=== PATIENT | female | born 1990 | race Two or more races ===

== ENCOUNTER 2025-08-10 20:58 | Inpatient (IN) | payer BC, SELFPAY ==
[2025-08-10 14:22] VITALS: BP 136/83
[2025-08-10 14:45] LABS: Hematocrit 41.5 % (37.0-47.0); Hemoglobin 13.2 g/dL (12.0-16.0); Mean Corp Hgb Conc. 31.8 g/dL (33.0-37.0); Mean Corpuscular Volume 89.1 fL (81.0-99.0); Nucleated Red Blood Cells % 0 %; Platelet Count 283 10^3/uL (130-400); Red Cell Dist. Width 12.0 % (11.5-14.5)
[2025-08-10 14:54] LABS: INR 0.84; PT 12.0 Sec (11.4-14.6)
[2025-08-10 14:55] LABS: APTT 26.2 Sec (23.4-35.0)
[2025-08-10 15:05] LABS: HCG, Serum Qualitative Screen Negative
[2025-08-10 15:09] LABS: ALT (SGPT) 19 U/L (0-35); AST (SGOT) 21 U/L (14-36); Albumin 4.5 g/dl (3.5-5.0); Alkaline Phosphatase 60 U/L (38-126); Blood Urea Nitrogen 4 mg/dl (7-17); Calcium 9.8 mg/dl (8.4-10.2); Carbon Dioxide 25 mmol/L (22-30); Chloride 102 mmol/L (98-107); Glucose 99 mg/dl (70-99); Potassium 3.9 mmol/L (3.5-5.1); Sodium 132 mmol/L (135-145); Total Protein 7.6 g/dl (6.3-8.2); eGFR > 60.00
[2025-08-10 16:08] VITALS: BMI 29.1
[2025-08-10 16:12] VITALS: BP 110/88
--- NOTE | 2025-08-10 17:18 | ED.GENMED ---
History of Present Illness
<Diallo Brice MD, Resident - Last Filed: 08/10/25 21:32>
General
Chief Complaint: Rectal Bleeding
Source: patient and significant other
Time Seen by Provider: 08/10/25 16:56
History of Present Illness
History of Present Illness:
Patient is a 35-year-old female with PMH of papillary thyroid cancer s/p CASTRO ablation and thyroidectomy, hypothyroidism, and GERD who presents to the [facility] ED with bloody diarrhea and abdominal pain since this morning. Patient was woken from
sleep at 3 AM this morning with severe, diffuse abdominal pain. She then had diarrheal BM, which eased the pain. Since 3 AM, patient has had constant abdominal pain that fluctuates in intensity. The pain gradually increases until she has BM,
which eases (but does not totally relieve) the pain. Patient's diarrheal BMs became bloody around 8 AM, with all subsequent BMs being bloody diarrhea. Since onset 3 AM, patient has had 'at least a dozen' BMs of diarrhea. Patient has been short of
breath since onset this morning, but she believes this is due to the deep breathing worsening the abdominal pain. No chest pain, cough, wheezing, or recent illnesses. No recent changes to her diet. Patient had a normal dinner of rice and
chickpeas at home last night, and she had some rice crispies around 11 AM today. Patient was started on antibiotic (amoxicillin) by urgent care on 08/05/2025 for suspected dental infection following dental work 2-3 weeks ago. She is scheduled to
see her dentist tomorrow. Patient traveled to [place] for work. Couple weeks ago. No personal or family history of GI cancer or inflammatory bowel disease. Never had a colonoscopy. No history of abdominal surgeries.
Past History
<Diallo Brice MD, Resident - Last Filed: 08/10/25 21:32>
Past History
ED Past Medical History: Cancer (Papillary thyroid cancer (diagnosed September 2024)), GERD and Hypothyroidism
ED Past Surgical History: Other (Thyroidectomy (October 2024); CASTRO ablation (March 2025))
Family History
Family History: Negative Cancer
Review of Systems
<Diallo Brice MD, Resident - Last Filed: 08/10/25 21:32>
Review of Systems
Respiratory: Reports trouble breathing; Denies cough
Cardiac: Denies chest pain
ABD/GI: Reports abdominal pain, diarrhea and bloody stools; Denies nausea or vomiting
Neurological: Denies dizzy or headache
Phy Exam
<Diallo Brice MD, Resident - Last Filed: 08/10/25 21:32>
Physical Exam
Physical Exam:
General: Mild distress due to abdominal pain. Easily communicative.
GI: Diffusely TTP. Soft. Nondistended. No rigidity, guarding, or rebound tenderness. Rectal exam shows no hemorrhoids, fissures, or [place] blood. No masses. No ecchymoses or lesions.
CV: RRR. S1, S2 noted. No M/R/G. No LE edema.
Pulm: CTAB. No wheeze or crackles. No cyanosis.
Neuro: A&O x 3. NFD. CN II through XII grossly intact.
Course
<Diallo Brice MD, Resident - Last Filed: 08/10/25 21:32>
Orders/Labs/Results
Orders:
Orders
08/10/25 14:27
EKG [Electrocardiogram (*1)] Urgent
Reason for Study: Tachycardia
EKG- Treatment ONCE
Test Result ONCE
08/10/25 14:31
Type+Screen Urgent
Complete Blood Count/With Diff Urgent
Comprehensive Metabolic Panel Urgent
HCG, Serum Qualitative Screen Urgent
Comment: Notify provider if positive test present
PTT Urgent
Prothrombin Time Urgent
08/10/25 17:31
0.9% Sodium Chloride 1000 ml [Nss] 1,000 ml IV BOLUS
HYDROmorphone [Dilaudid] 0.5 mg IV NOW STA
08/10/25 17:33
CT Abd/pelvis W Iv Cont Urgent
Comment:
Reason For Exam: Abdominal pain w/ bloody diarrhea
08/10/25 18:38
STOOL [C difficile Antigen & Toxins] Urgent
ABDULKADIR Source: Feces/Stool
Specimen Description:
Date Specimen was Collected: 08/10/25
Time Specimen was Collected: 17:36
Stool Culture Urgent
ABDULKADIR Source: Feces/Stool
Specimen Description:
Date Specimen was Collected: 08/10/25
Time Specimen was Collected: 17:36
08/10/25 20:18
Admit/Transfer Patient As Directed
Co-Sign Provider:
Level of Care: Inpatient admission
Assign to:: Medical/Surgical
Physician / Group: christi
Diagnosis: colitis
Reason for Hospitalization: colitis
Expected length of stay greater than two midnights?: Yes
ELOS- Estimated Length of Stay in days: 3
I certify the patient meets the requirements for IP care: Yes
08/10/25 20:19
Code Status As Directed
Resuscitation Status: Full Code
PRN Pain Medication Management As Directed
May give lesser potent ordered pain med per pt: Yes
preference::
Protocol:: Medication orders for pain may be administered in a
manner that supports deferring to patient preference
when the pt is:
- Requesting an ordered lesser potent pain medication.
Least to most potent pain medications are defined
as: acetaminophen < NSAID < tramadol < opioids
(morphine, oxycodone, hydromorphone).
- Requesting a lesser dose of the same medication IF
ORDERED.
- Requesting a less intrusive route of administration
if both routes are prescribed by the provider (PO <
IV).
08/10/25 20:23
Vancomycin HCl [Firvanq] 250 mg PO NOW STA
08/10/25 20:27
Ondansetron Injectable [Zofran] 4 mg IV NOW STA
08/10/25 20:53
Hemoglobin Routine
Abnormal Lab Results
08/10/25 08/10/25
14:31 20:53
Hgb 11.9 L g/dL
(12.0-16.0)
MCHC 31.8 L g/dL
(33.0-37.0)
Absolute Neuts (auto) 8.2 H 10^3/uL
(1.4-6.5)
Neutrophils % 82.6 H %
(42.2-75.2)
Lymphocytes % 12.0 L %
(20.5-51.1)
Sodium 132 L mmol/L
(135-145)
BUN 4 L mg/dl
(7-17)
08/10/25 20:53
08/10/25 14:31
Vital Signs
Initial and Last Documented VS:
Initial Vital Signs
Temp Pulse Resp BP Pulse Ox
98.6 F 99 20 136/83 96
08/10/25 14:22 08/10/25 14:22 08/10/25 14:22 08/10/25 14:22 08/10/25 14:22
Last Documented Vital Signs
Temp Pulse Resp BP Pulse Ox
98.6 F 67 18 109/84 99
08/10/25 14:22 08/10/25 20:56 08/10/25 20:56 08/10/25 20:56 08/10/25 20:56
Valeriolt;Martín Jay, - Last Filed: 08/10/25 19:58>
Orders/Labs/Results
Orders:
Orders
08/10/25 14:27
EKG [Electrocardiogram (*1)] Urgent
Reason for Study: Tachycardia
EKG- Treatment ONCE
Test Result ONCE
08/10/25 14:31
Type+Screen Urgent
Complete Blood Count/With Diff Urgent
Comprehensive Metabolic Panel Urgent
HCG, Serum Qualitative Screen Urgent
Comment: Notify provider if positive test present
PTT Urgent
Prothrombin Time Urgent
08/10/25 17:31
0.9% Sodium Chloride 1000 ml [Nss] 1,000 ml IV BOLUS
HYDROmorphone [Dilaudid] 0.5 mg IV NOW STA
08/10/25 17:33
CT Abd/pelvis W Iv Cont Urgent
Comment:
Reason For Exam: Abdominal pain w/ bloody diarrhea
08/10/25 18:38
STOOL [C difficile Antigen & Toxins] Urgent
ABDULKADIR Source: Feces/Stool
Specimen Description:
Date Specimen was Collected: 08/10/25
Time Specimen was Collected: 17:36
Stool Culture Urgent
ABDULKADIR Source: Feces/Stool
Specimen Description:
Date Specimen was Collected: 08/10/25
Time Specimen was Collected: 17:36
08/10/25 20:18
Admit/Transfer Patient As Directed
Co-Sign Provider:
Level of Care: Inpatient admission
Assign to:: Medical/Surgical
Physician / Group: christi
Diagnosis: colitis
Reason for Hospitalization: colitis
Expected length of stay greater than two midnights?: Yes
ELOS- Estimated Length of Stay in days: 3
I certify the patient meets the requirements for IP care: Yes
08/10/25 20:19
Code Status As Directed
Resuscitation Status: Full Code
PRN Pain Medication Management As Directed
May give lesser potent ordered pain med per pt: Yes
preference::
Protocol:: Medication orders for pain may be administered in a
manner that supports deferring to patient preference
when the pt is:
- Requesting an ordered lesser potent pain medication.
Least to most potent pain medications are defined
as: acetaminophen < NSAID < tramadol < opioids
(morphine, oxycodone, hydromorphone).
- Requesting a lesser dose of the same medication IF
ORDERED.
- Requesting a less intrusive route of administration
if both routes are prescribed by the provider (PO <
IV).
08/10/25 20:23
Vancomycin HCl [Firvanq] 250 mg PO NOW STA
08/10/25 20:27
Ondansetron Injectable [Zofran] 4 mg IV NOW STA
08/10/25 20:53
Hemoglobin Routine
Abnormal Lab Results
08/10/25 08/10/25
14:31 20:53
Hgb 11.9 L g/dL
(12.0-16.0)
MCHC 31.8 L g/dL
(33.0-37.0)
Absolute Neuts (auto) 8.2 H 10^3/uL
(1.4-6.5)
Neutrophils % 82.6 H %
(42.2-75.2)
Lymphocytes % 12.0 L %
(20.5-51.1)
Sodium 132 L mmol/L
(135-145)
BUN 4 L mg/dl
(7-17)
08/10/25 20:53
08/10/25 14:31
Vital Signs
Initial and Last Documented VS:
Initial Vital Signs
Temp Pulse Resp BP Pulse Ox
98.6 F 99 20 136/83 96
08/10/25 14:22 08/10/25 14:22 08/10/25 14:22 08/10/25 14:22 08/10/25 14:22
Last Documented Vital Signs
Temp Pulse Resp BP Pulse Ox
98.6 F 67 18 109/84 99
08/10/25 14:22 08/10/25 20:56 08/10/25 20:56 08/10/25 20:56 08/10/25 20:56
<Diallo Brice MD, Resident - Last Filed: 08/10/25 21:32>
MDM/Problems Addressed
Differential Diagnosis Includes:
Infectious colitis (e.g., C. difficile, Shigella, STEC)
Inflammatory bowel disease
Ischemic colitis
Malignancy
MDM/Problems Addressed:
Assessment: Patient is a 35-year-old female with PMH of papillary thyroid cancer s/p CASTRO ablation and thyroidectomy, hypothyroidism, and GERD who presents with sudden onset, severe, diffuse abdominal pain and frequent diarrheal bowel movements since
3 AM, with the bowel movements producing bright red blood since 8 AM. BMs provide mild relief of abdominal pain. Mild shortness of breath due to abdominal pain. Recently started amoxicillin on 08/05 for dental infection. No recent illnesses, sick
contacts, international travel, or changes to her diet. Abdominal exam remarkable for diffuse TTP, without peritoneal signs. Rectal exam shows no hemorrhoids, fissures, or [place] blood. AFVSS. EKG shows NSR. Hgb 13.5. No leukocytosis. C.
difficile antigen positive, toxin negative. CTAP suggests diffuse colitis. Suspect C. difficile colitis.
Plan:
#Abdominal pain
#Bloody diarrhea
EKG
Labs: CBC, CMP, stool culture, C. difficile studies
Imaging: CTAP w/ IV contrast
IVFs, pain control
Antibiotics: Vancomycin
Plan for admission
<Diallo Brice MD, Resident - Last Filed: 08/10/25 21:32>
*Pulse Oximetry
SaO2: 99
Oxygen Mode of Delivery: Room air
Patient hypoxic: no
*Critical Care Note
Total Time (30-74mins, 75-104mins- exclusive of procedures): Not Applicable
<Martín Jay DO - Last Filed: 08/10/25 19:58>
Update Note
Update Note:
7:[address] noted labs noted stool studies noted patient is fairly uncomfortable believe will be prudent admitted to the hospital start her on antibiotics for C. difficile
ED Attending Note
<Diallo Brice MD, Resident - Last Filed: 08/10/25 21:32>
-
Portions of this chart may have been created with voice recognition software.� Occasional wrong word or��sound alike� substitutions may have occurred due to the inherent limitations of voice recognition software.
<Martín Jay, DO - Last Filed: 08/10/25 19:58>
ED Attending Note
Patient seen and examined by attending physician: Yes
I performed a history and physical exam of patient and discussed management with resident, I reviewed resident's note and agree with documented findings and plan of care.: Yes
ED Attending Note:
Seen with resident examined independently 35-year-old female thyroid cancer status post removal on replacement therapy crampy abdominal pain with blood, been on amoxicillin for dental issue will check stool studies CT scan analgesics
Discharge Plan
Departure
Patient Disposition: Admit
Date of Disposition: 08/10/25
Time of Disposition: 19:59
Presentation/result/management discussed w/ accepting MD/DO: Hospitalist
Patient with high blood pressure during this ER visit?: No
Condition: Fair
Covid-19: Not Applicable
Discharge Problem:
Colitis
Interventions
Interventions:
*Risk Screen - Suicide Last Done: 08/10/25 14:22
*General Assessment Last Done: 08/10/25 16:09
*Neglect/Abuse Screening Last Done: 08/10/25 14:22
*ED- Fall Risk Assessment Last Done: 08/10/25 16:09
*ED COVID-19 Vaccine History Last Done: 08/10/25 16:09
*ED Influenza Vaccine History Last Done: 08/10/25 16:09
BF-Nkjyeh-Cdnocsswwp Assessment Last Done: 08/10/25 16:14
ED- Cardiac Assessment Last Done: 08/10/25 16:14
ED- Pulmonary Assessment Last Done: 08/10/25 16:14
[2025-08-10] MEDS: NSS 1000 IV (17:49)
[2025-08-10] MEDS: DILAUDID 0.5 MG IV (18:33)
--- NOTE | 2025-08-10 20:02 | HPS.HSE ---
Family Physician
-
Family Physician: Jessica Morales MD
Chief Complaint
-
abdominal pain
History of Present Illness
35-year-old female with PMH of papillary thyroid cancer s/p CASTRO ablation and thyroidectomy, hypothyroidism, and GERD who presents to the [facility] ED with bloody diarrhea and abdominal pain since this morning. patient stated multiple episodes of
watery bloody diarrhea. she is also having vomiting as well. she is complaining of abdominal pain.patient had a normal dinner of rice and chickpeas at home last night, and she had some rice crispies around 11 AM today. Patient was started on
antibiotic (amoxicillin) by urgent care on 08/05/2025 for suspected dental infection following dental work 2-3 weeks ago. She is scheduled to see her dentist tomorrow. Patient traveled to [place] for work last week for 3 days. denied fever,
chills, chest pain, sob. denied cough, congestion. denied dysuria or hematuria.
CT with colitis. admitting for further management.
Medical History
Past Medical History
Past Medical History: Reports Other
Additional Past Medical History:
papillary thyroid cancer
hypothyroidism
GERD
Past Surgical History: Reports Other
Additional Past Surgical History:
thyroidectomy
Social History
Tobacco: Non-smoker
Alcohol: None
Drug: None
Personal:
Living: With Family
Family History
Family History: Not pertinent
Allergies / Home Medications
Allergies reflects when Allergies were last updated in [facility].
Home Medications with original date entered in [facility]
Allergy/Medication List:
Allergies
Allergy/AdvReac Type Severity Reaction Status Date / Time
No Known Allergies Allergy Unverified 08/10/25 14:22
Home Medications
levothyroxine 100 mcg tablet 100 mcg PO DAILY 08/10/25
omeprazole 20 mg tablet,delayed release 20 mg PO DAILY PRN reflux 08/10/25
Review of Systems
-
Constitutional: Reports No Symptoms
EENT: Reports No Symptoms
Respiratory: Reports No Symptoms
Cardiac: Reports No Symptoms
Abdomen/GI: Reports Abdominal Pain, Nausea, Vomiting and Diarrhea
: Reports No Symptoms
Musculoskeletal: Reports No Symptoms
Skin: Reports No Symptoms
Neurological: Reports No Symptoms
Endocrine: Reports No Symptoms
Hematologic/Lymphatic: Reports No Symptoms
Psych: Reports No Symptoms
Physical Exam
Vital Signs
Vital Signs
Temp Pulse Resp BP Pulse Ox
98.6 F 78 17 110/88 99
08/10/25 14:22 08/10/25 16:14 08/10/25 19:53 08/10/25 16:12 08/10/25 17:27
Physical Exam
General: Well Developed, Well Nourished and No Apparent Distress
HEENT: NormoCephalic, Moist mucous membranes and Atraumatic
Respiratory: Clear
Cardiac: S1/S2 and Regular Rhythm; No Murmur or Rub
GI: Soft, Non Tender, Non Distended and Normal Bowel Sounds; No Organomegaly
Rectal: Deferred by Provider
Musculoskeletal: No Clubbing, No Cyanosis and No Edema
Skin: No Rash
Neuro: AO x 3 and Nonfocal/grossly intact
Psych: Calm
Laboratory Results
-
08/10/25 14:31
08/10/25 14:31
Laboratory Results
PT 12.0 Sec (11.4-14.6) 08/10/25 14:31
INR 0.84 08/10/25 14:31
APTT 26.2 Sec (23.4-35.0) 08/10/25 14:31
Total Bilirubin 0.9 mg/dl (0.2-1.3) 08/10/25 14:31
AST 21 U/L (14-36) 08/10/25 14:31
ALT 19 U/L (0-35) 08/10/25 14:31
Alkaline Phosphatase 60 U/L (38-126) 08/10/25 14:31
Data Reviewed
-
CT Scan: Report Reviewed by me
Lab Data: Labs Reviewed by me
Impression/Plan
-
# Abdominal pain with bloody stools secondary to c diff colitis secondary to recent abx.
- CT abdomen pelvis with impression ofCT findings compatible with diffuse colitis. Infectious colitis including C. difficile antibiotic associated colitis would be the leading consideration. Main differential consideration of inflammatory bowel
disease such as ulcerative colitis.The appendix appears normal.Small amount of free pelvic fluid.
- Obtain stool cultures
-stool for C diff antigen positive, toxin negative
- Keep patient n.p.o. wit sips of clear
- Fluids continued for hydration
-oral vanco
-consider GI consult if no improvement in her symptoms
-Zofran and Dilaudid prn
#hxt of papillary thyroid ca s/p thyroidectomy
#post hypothyroidism
-levothyroxine continued
#DVT prophylaxis
-scd
#CODE status
-full code
--- NOTE | 2025-08-10 20:41 | W.PN.UPDATE ---
Update Note
Progress Note Update
This is an addendum to H&P written by SANDWICH MACHINE OPERATOR Marisela Camargo
I saw and examined the patient.
The SANDWICH MACHINE OPERATOR's note was reviewed and I agree with the note.
Comment:
Ms. Amara Morales is a 35 yo woman with hx recent antibiotic use for dental infection presents with abdominal pain, bloody diarrhea, nausea and vomiting that started this morning. Patient was on antibiotics one month ago and again started on Friday
for dental infection.
Triage VS: T 98.6, P 99, RR 20, BP 136/83, SpO2 96%
On exam patient appears mildly uncomfortable. Lungs clear; abdomen tender in all 4 quadrants, no rebound or guarding
LABS: WBC 9.9, Hg 13.2, PLT 283, Na 132, K+ 3.9, CO2 25, BUN 4, Cr 0.6, liver enzymes WNL
HCG negative
CT A/P
IMPRESSION: CT findings compatible with diffuse colitis. Infectious colitis including C. difficile antibiotic associated colitis would be the leading consideration. Main differential consideration of inflammatory bowel disease such as ulcerative
colitis.
The appendix appears normal.
Small amount of free pelvic fluid.
C. Diff Colitis
Hematochezia
-C. Diff antigen positive, toxin negative. Although toxin negative, suspect true infection based on clinical picture.
-Will continue oral Vancomycin 125mg PO QID
-IVF
-pain control, IV Zofran PRN
-trend Hg
-if no improvement in 48-72 hours, low threshold to consult GI
Dental infection
-s/p 4 days Amoxicillin, hold further antibiotics for now
DVT PPx SCD
FULL CODE
76 minutes spent on patient care
[2025-08-10] MEDS: FIRVANQ 250 MG PO (20:54)
[2025-08-10] MEDS: ZOFRAN 4 MG IV (20:54)
[2025-08-10 20:56] VITALS: BP 109/84
[2025-08-10 21:05] LABS: Hemoglobin 11.9 g/dL (12.0-16.0)
--- NOTE | 2025-08-10 23:44 | PTCARENOTE ---
Pt received from ED to room 420. Pt oriented to room and call poon.
[2025-08-10 23:53] VITALS: BP 111/75; BMI 24.1
[2025-08-11] MEDS: NSS 1000 IV ×2 (00:07→11:34)
[2025-08-11] MEDS: DILAUDID 0.5 MG IV ×4 (02:50→20:46)
[2025-08-11] MEDS: FIRVANQ 125 MG PO ×2 (03:00→06:05)
[2025-08-11] MEDS: SYNTHROID 100 MCG PO (06:05)
[2025-08-11 08:10] VITALS: BP 105/70
[2025-08-11 08:21] LABS: Blood Urea Nitrogen 3 mg/dl (7-17); Calcium 8.4 mg/dl (8.4-10.2); Carbon Dioxide 26 mmol/L (22-30); Chloride 105 mmol/L (98-107); Estimated Creatinine Clearance 120 ml/min; Glucose 95 mg/dl (70-99); Potassium 3.6 mmol/L (3.5-5.1); Sodium 133 mmol/L (135-145); eGFR > 60.00
[2025-08-11 08:34] LABS: Hematocrit 38.8 % (37.0-47.0); Hemoglobin 12.5 g/dL (12.0-16.0); Mean Corp Hgb Conc. 32.2 g/dL (33.0-37.0); Mean Corpuscular Volume 91.1 fL (81.0-99.0); Platelet Count 258 10^3/uL (130-400); Red Cell Dist. Width 12.1 % (11.5-14.5)
--- NOTE | 2025-08-11 10:56 | W.PN.HOSP.TC ---
Today's Communication/Plan
-
And IV Flagyl. Increase p.o. vancomycin dose.
Assessment / Plan
Assessment / Plan
Acute bloody diarrhea with pancolitis
Healthy patient. Not immune compromised. No recent unusual food.
Antibiotics developed on antibiotics use.
C. difficile antigen positive but toxin is negative but clinically with pancolitis, bloody diarrhea, antibiotics used it is all more suggestive of C. difficile colitis but other infectious etiologies could be possible. No chronicity to her GI
symptoms doubt acute inflammatory bowel disease.
Due to severity of her pain and pancolitis and bloody diarrhea increase the vancomycin to 250mg and had Flagyl. If no improvement in 24-48 hours hours will need a GI evaluation.
Keep her n.p.o. today. Continue with IV fluids and IV Zofran.
Dental infection-finished 4 days of amoxicillin. Hold further antibiotics for now.
Anticipated Discharge: > 48 hours
Subjective/Interval History
-
Date of Service: August 11, 2025
Patient still with abdominal pain and bloody diarrhea. Nausea present but no emesis. No fever or chills. No lightheadedness.
Patient had 3 courses of antibiotics this year-once in November after thyroid surgery, once in June for dental indication, again now for dental issues. No prior diarrheal episodes with antibiotics.
Denies any GI illness in the family.
Did not eat anything unusual home-cooked meals.
Travelled to [facility] last week but no GI illness.
Objective Data
-
Labs:
Laboratory Results
08/11/25
06:56
WBC 10.6
Hgb 12.5
Hct 38.8
Plt Count 258
Sodium 133 L
Potassium 3.6
Chloride 105
Carbon Dioxide 26
BUN 3 L
Creatinine 0.6
Glucose 95
Calcium 8.4
Vital Signs:
Vital Signs
Temp Pulse Resp BP Pulse Ox
98.2 F 77 16 105/70 95
08/11/25 08:10 08/11/25 08:10 08/11/25 08:10 08/11/25 08:10 08/11/25 08:10
I&O
08/10/25 08/11/25 08/12/25
06:59 06:59 06:59
Intake Total 560 / 560
Balance 560 / 560
Physical Exam
-
General: Comfortable
Respiratory: Clear to Auscultation and Non Labored Respirations; Negative Accessory Resp Muscle Use
Cardiac: Regular Rhythm and S1/S2; Negative Tachycardic
GI: Soft, Nondistended, Normal Bowel Sounds and Tender (Soft with generalized discomfort in all quadrants but no rebound guarding rigidity)
Neuro: AO x 3
Data Reviewed
-
CT Scan: Report Reviewed by me (CT abdomen pelvis)
Labs: Labs Reviewed by me
[2025-08-11] MEDS: FIRVANQ 250 MG PO ×2 (11:34→18:09)
[2025-08-11] MEDS: FLAGYL 500 MG 100 IV ×2 (11:34→19:39)
[2025-08-11 15:22] VITALS: BP 109/69
--- NOTE | 2025-08-11 16:55 | CM ---
ASHLEY met with Sharda and her . They live in a 2 story home with 2 entry steps. Bedroom is on the second level; full bathrooms on both levels.
Sharda is typically (I) amb and adls. Anticipates discharge to home with no needs.
[2025-08-11 23:00] VITALS: BP 105/69
[2025-08-12] MEDS: NSS 1000 IV ×2 (00:48→12:19)
[2025-08-12] MEDS: FIRVANQ 250 MG PO ×4 (00:50→17:26)
[2025-08-12] MEDS: FLAGYL 500 MG 100 IV ×3 (03:49→20:39)
[2025-08-12] MEDS: SYNTHROID 100 MCG PO (05:31)
[2025-08-12 07:14] LABS: Hematocrit 34.8 % (37.0-47.0); Hemoglobin 11.1 g/dL (12.0-16.0); Mean Corp Hgb Conc. 31.9 g/dL (33.0-37.0); Mean Corpuscular Volume 91.3 fL (81.0-99.0); Platelet Count 196 10^3/uL (130-400); Red Cell Dist. Width 12.1 % (11.5-14.5)
[2025-08-12 07:16] LABS: Blood Urea Nitrogen < 2 mg/dl (7-17); Calcium 8.1 mg/dl (8.4-10.2); Carbon Dioxide 28 mmol/L (22-30); Chloride 104 mmol/L (98-107); Estimated Creatinine Clearance 120 ml/min; Glucose 82 mg/dl (70-99); Potassium 3.3 mmol/L (3.5-5.1); Sodium 132 mmol/L (135-145); eGFR > 60.00
[2025-08-12 08:31] VITALS: BP 110/71
--- NOTE | 2025-08-12 09:05 | PN.CDI ---
CDI
- -
CDI:
Physician Documentation Request
Admit Date: 08/10/25 20:58
Dear Doctor Isaiah,
Please review the following and provide your response in the progress notes.
Clinical Indicators:
Pt admitted with Acute bloody diarrhea with pancolitis
Sodium levels are as below/Pt did get IVFs
Laboratory Tests
08/10/25 08/11/25 08/12/25
14:31 06:56 05:47
Sodium 132 L 133 L 132 L
Based on the above, could you clarify in the progress notes, the appropriate diagnosis, if significant, that supports the above abnormalities and additional evaluation, monitoring and/or treatment rendered:
Hyponatremia
Abnormal lab value
Other ( please specify)
Use of terms such as suspected, likely, concern for, or probable (associated with a specific diagnosis that is being evaluated, monitored, or treated as if it exists) are acceptable and can be coded in the inpatient setting, when documented at the
time of discharge.
Thank you,
Bella Fox RN
CDI Specialist
[place] [facility]
Please use your independent medical judgment in providing your response.
[2025-08-12] MEDS: KCL 40 MEQ PO (12:19)
--- NOTE | 2025-08-12 12:41 | W.PN.HOSP.TC ---
Today's Communication/Plan
-
Start on clear liquids
Continue with oral vancomycin and IV Flagyl
Assessment / Plan
Assessment / Plan
Acute bloody diarrhea with pancolitis
Healthy patient. Not immune compromised. No recent unusual food.
Antibiotics developed on antibiotics use.
C. difficile antigen positive but toxin is negative but clinically with pancolitis, bloody diarrhea, antibiotics used it is all more suggestive of C. difficile colitis but other infectious etiologies could be possible. No chronicity to her GI
symptoms doubt acute inflammatory bowel disease.
Due to severity of her pain and pancolitis and bloody diarrhea increase the vancomycin to 250mg and had Flagyl.
Improving symptomatology. No further blood. Less frequent bowel movements.
Start on clear liquids. DC IV fluids when she tolerates clear liquids.
Hypokalemia-replete
Dental infection-finished 4 days of amoxicillin. Hold further antibiotics for now.
Anticipated Discharge: 24 - 48 hours
Subjective/Interval History
-
Date of Service: August 12, 2025
Feeling improved.
Slept for 8 hours without interruption.
This morning had small loose stools but no blood in the stools this time.
No nausea vomiting. No fever chills.
Improved abdominal discomfort.
Objective Data
-
Labs:
Laboratory Results
08/12/25
05:47
WBC 7.2
Hgb 11.1 L
Hct 34.8 L
Plt Count 196 D
Sodium 132 L
Potassium 3.3 L
Chloride 104
Carbon Dioxide 28
BUN < 2 L
Creatinine 0.5 L
Glucose 82
Calcium 8.1 L
Vital Signs:
Vital Signs
Temp Pulse Resp BP Pulse Ox
98.1 F 77 16 110/71 100
08/12/25 08:31 08/12/25 08:31 08/12/25 08:31 08/12/25 08:31 08/12/25 08:31
I&O
08/11/25 08/12/25 08/13/25
06:59 06:59 06:59
Intake Total 560 / 560 960 / 960
Balance 560 / 560 960 / 960
Physical Exam
-
General: Comfortable
Respiratory: Non Labored Respirations; Negative Accessory Resp Muscle Use
Cardiac: Regular Rhythm; Negative Tachycardic
GI: Soft, Nontender, Nondistended and Normal Bowel Sounds
Neuro: AO x 3
Psych: Calm
Data Reviewed
-
Labs: Labs Reviewed by me
--- NOTE | 2025-08-12 14:23 | CM ---
CM reviewed chart, care ongoing.
Plan start on clear liquids, continue antibiotics.
CM anticipates no needs upon d/c, will continue to follow.
Plan; home no needs anticipated
[2025-08-12 15:50] VITALS: BP 101/67
[2025-08-12 23:00] VITALS: BP 124/71
[2025-08-13] MEDS: FIRVANQ 250 MG PO ×4 (00:18→17:09)
[2025-08-13] MEDS: NSS 1000 IV (02:16)
[2025-08-13] MEDS: FLAGYL 500 MG 100 IV ×3 (04:06→20:01)
[2025-08-13] MEDS: SYNTHROID 100 MCG PO (05:13)
[2025-08-13 07:00] VITALS: BP 98/62
[2025-08-13 08:04] LABS: Hematocrit 34.7 % (37.0-47.0); Hemoglobin 11.1 g/dL (12.0-16.0); Mean Corp Hgb Conc. 32.0 g/dL (33.0-37.0); Mean Corpuscular Volume 91.3 fL (81.0-99.0); Platelet Count 199 10^3/uL (130-400); Red Cell Dist. Width 11.9 % (11.5-14.5)
[2025-08-13 08:30] LABS: Blood Urea Nitrogen 4 mg/dl (7-17); Calcium 8.3 mg/dl (8.4-10.2); Carbon Dioxide 26 mmol/L (22-30); Chloride 106 mmol/L (98-107); Estimated Creatinine Clearance 120 ml/min; Glucose 72 mg/dl (70-99); Potassium 3.8 mmol/L (3.5-5.1); Sodium 133 mmol/L (135-145); eGFR > 60.00
--- NOTE | 2025-08-13 10:19 | W.PN.HOSP.TC ---
Today's Communication/Plan
-
Advance to full liquid diets. Hold further IV fluids.
Continue with p.o. vancomycin and IV Flagyl
Assessment / Plan
Assessment / Plan
Acute bloody diarrhea with pancolitis
Healthy patient. Not immune compromised. No recent unusual food.
Antibiotics developed on antibiotics use.
C. difficile antigen positive but toxin is negative but clinically with pancolitis, bloody diarrhea, antibiotics used it is all more suggestive of C. difficile colitis but other infectious etiologies could be possible. No chronicity to her GI
symptoms doubt acute inflammatory bowel disease.
Due to severity of her pain and pancolitis and bloody diarrhea increase the vancomycin to 250mg and had Flagyl.
Continued improving symptomatology. Nonbloody diarrheal stools. Less frequent bowel movements.
Advance diet to full liquid
DC IV fluids
Hyponatremia-suspect secondary to volume deficit continue to follow
Dental infection-finished 4 days of amoxicillin. Hold further antibiotics for now.
Anticipated Discharge: 24 - 48 hours
Subjective/Interval History
-
Date of Service: August 13, 2025
Improving diarrhea. Not bloody anymore. Stools are looser.
No nausea vomiting.
Abdominal pain has improved. She feels bloated at times. No fever or chills.
Objective Data
-
Labs:
Laboratory Results
08/13/25
06:41
WBC 5.2
Hgb 11.1 L
Hct 34.7 L
Plt Count 199
Sodium 133 L
Potassium 3.8
Chloride 106
Carbon Dioxide 26
BUN 4 L
Creatinine 0.6
Glucose 72
Calcium 8.3 L
Vital Signs:
Vital Signs
Temp Pulse Resp BP Pulse Ox
98.1 F 71 12 98/62 96
08/13/25 07:00 08/13/25 07:00 08/13/25 07:00 08/13/25 07:00 08/13/25 07:00
I&O
08/12/25 08/13/25 08/14/25
06:59 06:59 06:59
Intake Total 960 / 960 2079
Balance 960 / 960 2079
Physical Exam
-
General: No Apparent Distress
Respiratory: Clear to Auscultation and Non Labored Respirations; Negative Accessory Resp Muscle Use
Cardiac: Regular Rhythm and S1/S2; Negative Tachycardic
GI: Soft, Nondistended, Normal Bowel Sounds and Tender (Some discomfort noted today in the left side of the abdomen but no rebound guarding rigidity)
Neuro: AO x 3
Psych: Calm
Data Reviewed
-
Labs: Labs Reviewed by me
[2025-08-13 15:19] VITALS: BP 105/69
[2025-08-13] MEDS: FLUSH (NSS) 1 FLUSH IV (20:01)
[2025-08-13 23:00] VITALS: BP 105/63
[2025-08-14] MEDS: FIRVANQ 250 MG PO ×5 (00:31→23:41)
[2025-08-14] MEDS: FLUSH (NSS) 2 FLUSH IV (04:34)
[2025-08-14] MEDS: FLAGYL 500 MG 100 IV ×3 (04:34→20:45)
[2025-08-14] MEDS: SYNTHROID 100 MCG PO (05:18)
[2025-08-14 07:00] VITALS: BP 104/75
[2025-08-14 07:00] LABS: Hematocrit 37.5 % (37.0-47.0); Hemoglobin 12.1 g/dL (12.0-16.0); Mean Corp Hgb Conc. 32.3 g/dL (33.0-37.0); Mean Corpuscular Volume 88.7 fL (81.0-99.0); Platelet Count 224 10^3/uL (130-400); Red Cell Dist. Width 11.9 % (11.5-14.5)
[2025-08-14 07:19] LABS: Blood Urea Nitrogen 6 mg/dl (7-17); Calcium 8.8 mg/dl (8.4-10.2); Carbon Dioxide 24 mmol/L (22-30); Chloride 102 mmol/L (98-107); Estimated Creatinine Clearance 103 ml/min; Glucose 75 mg/dl (70-99); Potassium 3.9 mmol/L (3.5-5.1); Sodium 132 mmol/L (135-145); eGFR > 60.00
--- NOTE | 2025-08-14 11:44 | W.PN.HOSP.TC ---
Today's Communication/Plan
-
Advance diet to low residue diet
Assessment / Plan
Assessment / Plan
Acute bloody diarrhea with pancolitis
Healthy patient. Not immune compromised. No recent unusual food.
Diarrhea developed on antibiotics use.
C. difficile antigen positive but toxin is negative but clinically with pancolitis, bloody diarrhea, antibiotics used it is all more suggestive of C. difficile colitis but other infectious etiologies could be possible. No chronicity to her GI
symptoms doubt acute inflammatory bowel disease.
Due to severity of her pain and pancolitis and bloody diarrhea increased the vancomycin to 250mg and had Flagyl.
Continued improving symptomatology. No further blood in the stools. Less frequent bowel movements.
Tolerating clear liquid diet. Started on low residue today.
Hyponatremia-suspect secondary to volume deficit continue to follow
Dental infection-finished 4 days of amoxicillin. Hold further antibiotics for now. Experiencing some discomfort in the left jaw. Advised to see dentist tomorrow on discharge. She was advised that she will require 10 days of antibiotics from the
last day of antibiotics if the dentist were to prefer to put her back on antibiotic.
Anticipated Discharge: Within 24 hours
Subjective/Interval History
-
Date of Service: August 14, 2025
Continued improvement. Tolerating full liquid diet. Stools are on the looser side but much improved frequency and remains nonbloody. No fever or chills.
Experiencing some discomfort in the left lower jaw where she had a crown placed.
Denies abdominal pain but feels little bloated.
Objective Data
-
Labs:
Laboratory Results
08/14/25
06:12
WBC 5.7
Hgb 12.1
Hct 37.5
Plt Count 224
Sodium 132 L
Potassium 3.9
Chloride 102
Carbon Dioxide 24
BUN 6 L
Creatinine 0.7
Glucose 75
Calcium 8.8
Vital Signs:
Vital Signs
Temp Pulse Resp BP Pulse Ox
97.7 F 78 16 104/75 98
08/14/25 07:00 08/14/25 07:00 08/14/25 07:00 08/14/25 07:00 08/14/25 07:00
I&O
08/13/25 08/14/25 08/15/25
06:59 06:59 06:59
Intake Total 2079 1200 / 1200
Balance 2079 1200 / 1200
Physical Exam
-
General: Comfortable
Respiratory: Clear to Auscultation and Non Labored Respirations; Negative Accessory Resp Muscle Use
Cardiac: Regular Rhythm and S1/S2; Negative Tachycardic
GI: Soft, Nondistended, Normal Bowel Sounds and Tender (Mild discomfort in the left lower quadrant but no rebound guarding rigidity)
Neuro: AO x 3
Psych: Calm
Data Reviewed
-
Labs: Labs Reviewed by me
[2025-08-14 15:00] VITALS: BP 106/73
--- NOTE | 2025-08-14 15:55 | CM ---
CM reviewed chart, care ongoing.
Advance diet to low residue.
CM will continue to follow, no needs anticipated upon d/c.
Plan; home no needs anticipated
[2025-08-14 22:59] VITALS: BP 109/72
[2025-08-15] MEDS: FLAGYL 500 MG 100 IV ×2 (05:11→11:40)
[2025-08-15] MEDS: SYNTHROID 100 MCG PO (05:11)
[2025-08-15] MEDS: FIRVANQ 250 MG PO ×2 (05:11→11:40)
[2025-08-15 07:00] VITALS: BP 109/70
--- NOTE | 2025-08-15 11:44 | W.DCSUMMARY ---
Discharge Summary
Discharge Data
Date of Admission: 08/10/25
Date of Discharge: 08/15/25
Total time spent discharging patient (in min): 46
-
Pending Results: No
Hospital Course
Ms. Morales is a 35-year-old female with a medical history of papillary thyroid cancer (status post CASTRO ablation and thyroidectomy), acquired hypothyroidism, and GERD who presented with bloody diarrhea. She had recently been treated with Augmentin
for dental infection starting 08/05/2025. She presented with watery stools mixed with blood. Stool studies positive for C. difficile by PCR but not C. difficile toxin. However she improved with oral vancomycin and will be continued on this
medication considering high suspicion for C. difficile infection. She has been discharged to home with a prescription for oral vancomycin to complete a 10-day course. She has been instructed to take oral vancomycin prophylactically if she is
treated with a course of antibiotics for another infection (such as a dental infection) in the near future and should continue oral vancomycin 3 to 5 days after discontinuation of other antibiotics. At time of hospital discharge she was medically
stable.
General: No Apparent Distress, Comfortable and Conversant
HEENT: NormoCephalic, Moist mucous membranes, Atraumatic
Respiratory: Clear and Non Labored Respirations
Cardiac: S1/S2 and Regular Rhythm; No Rub or Gallop
GI: Soft, Non Tender, Non Distended and Normal Bowel Sounds
Musculoskeletal: No Edema, no deformity
: NO Mcrae
Neuro: Awake, Alert, Nonfocal/grossly intact
Psych: Calm and Intact Judgment/Insight
Discharge Plan
-
Patient Disposition: Home (Routine Discharge)
Discharge Diagnosis/Procedures: C Diff diarrhea
Diet: Low Residue
Additional Diets: Low residue for a week and resume your regular diet
Activity: As tolerated
Driving Restrictions: As prior to admission
Bathing Restrictions: None
Activity Restrictions/Additional Instructions:
You were treated for a colon infection believed to be due to a bacteria called C. difficile. You improved after being started on an antibiotic called vancomycin which you have been taking by mouth. You will continue this antibiotic to complete a
10-day course. If you are treated with other antibiotics in the near future such as for dental infection, you should also take a course of oral vancomycin to prevent recurrence of your C. difficile infection. You should continue taking oral
vancomycin in that case 3 to 5 days after stopping other antibiotics.
Referrals:
Jessica Morales MD [Family Provider, Internal Medicine] - in less than 1 week
Prescriptions:
New
vancomycin 250 mg capsule
250 mg PO QID Qty: 40 0RF
acetaminophen 325 mg Tablet
650 mg PO Q4HPRN PRN (Reason: mild pain /fever >100.4F) Qty: 1 0RF
Continued
omeprazole 20 mg Tablet,Delayed Release (Dr/Ec)
20 mg PO DAILY PRN (Reason: reflux)
levothyroxine 100 mcg Tablet
100 mcg PO DAILY
cyanocobalamin (vitamin B-12) 1,000 mcg Tablet
1,000 mcg PO DAILY
ferrous sulfate 325 mg (65 mg iron) Tablet
650 mg PO DAILY
cholecalciferol (vitamin D3) [Vitamin D3] 25 mcg (1,000 unit) Tablet
25 mcg PO DAILY
Discontinued
amoxicillin 875 mg Tablet
875 mg PO BID
Rx Instructions:
for 7 days starting 08/05/25
Discharge Orders:
Discharge Patient (As Directed); Ordered 08/15/25
Ordered By: Marcelino Peña
Discharge Date and Time
Print Language: WELSH
[2025-08-15 12:15] VITALS: BP 104/72
--- NOTE | 2025-08-15 18:16 | CM ---
Pt DC home no needs. Transportation provided by parents
== END 2025-08-15 12:33 | disposition home or self-care (01) | DRG 372 ==
LOC: 4 WEST ACU 20:58
PROVIDERS: Emergency Medicine; Registered Nurse; ADMITTING PHYSICIAN Student in an Organized Health Care Education/Training Program; ATTENDING PHYSICIAN Internal Medicine; EMERGENCY PHYSICIAN Emergency Medicine; FAMILY PHYSICIAN Internal Medicine
DX: A04.72 Enterocolitis due to Clostridium difficile, not specified as recurrent (principal); E87.1 Hypo-osmolality and hyponatremia; E89.0 Postprocedural hypothyroidism; Z85.850 Personal history of malignant neoplasm of thyroid; E87.6 Hypokalemia; K04.7 Periapical abscess without sinus; T36.95XA Adverse effect of unspecified systemic antibiotic, initial encounter
CPT/HCPCS: 74177; 80048; 80053; 84703; 85018; 85025; 85027; 85610; 85730; 86850; 86900; 86901; 87045; 87046; 87077; 87324; 87427; 87449; 93005; 96361; 96374; 99285; Q9967